=== PATIENT | male | born 1995 | race African-American/Black ===

== ENCOUNTER 2017-03-22 17:35 | Inpatient (IN) | payer BC, OTHER ==
[~2017-03-22] VITALS: Ht 185.4 cm; Wt 72.0 kg
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
[2017-03-22] MEDS ORDERED: LORAZEPAM 2 MG/ML 1 ML VIAL IM STA (19:42)
[2017-03-22] MEDS ORDERED: HALOPERIDOL LACTATE 5 MG/ML 1 ML VIAL IM STA (19:42)
[2017-03-22 20:16] LABS: BASO % 0.4 %; BASO ABS # 0.03 K/uL (0-0.2); EOS % 2.8 %; EOS ABS # 0.21 K/uL (0-0.5); HEMATOCRIT 45.9 % (42-52); HEMOGLOBIN 16.1 g/dL (14.0-18.0); LYMPH ABS # 2.95 K/uL (1.2-3.4); MEAN CORPUSCULAR HEMOGLOBIN 31.2 pg (25-34); MEAN CORPUSCULAR HGB CONC 35.1 g/dl (32-36); MEAN PLATELET VOLUME 10.4 fL (7.4-10.4); MONO % 9.2 %; MONO ABS # 0.68 K/uL (0.11-0.59); NEUT % 47.6 %; NEUT ABS # 3.51 K/uL (1.4-6.5); PLATELET COUNT 210 K/uL (130-400); RED CELL DISTRIBUTION WIDTH CV 12.2 % (11.5-14.5); RED CELL DISTRIBUTION WIDTH SD 38.7 fL (36.4-46.3); WHITE BLOOD COUNT 7.38 K/uL (4.8-10.8)
[2017-03-22 20:32] LABS: ALBUMIN 4.7 gm/dl (3.4-5.0); ALT/SGPT 20 U/L (12-78); BLOOD UREA NITROGEN 12 mg/dl (7-18); CALCIUM 9.5 mg/dl (8.5-10.1); CARBON DIOXIDE 23 mmol/L (21-32); CREATININE 1.23 mg/dl (0.60-1.40); GLUCOSE 94 mg/dl (70-99); POTASSIUM 3.3 mmol/L (3.5-5.1); SODIUM 138 mmol/L (136-145)
[2017-03-22 20:43] LABS: ALKALINE PHOSPHATASE 71 U/L (45-117); AST/SGOT 24 U/L (15-37); TOTAL PROTEIN 8.7 gm/dl (6.4-8.2)
[2017-03-22] MEDS ORDERED: NURSING VERBAL MED ORDER ONE ×2 (23:00→23:30)
[2017-03-22] MEDS ORDERED: LORAZEPAM 1 MG TAB PO PRN (23:00)
[2017-03-22 23:07] VITALS: O2SAT 99
[2017-03-22] MEDS ORDERED: HALOPERIDOL 5 MG TAB ONE (23:21)
[2017-03-22] MEDS ORDERED: MAGNESIUM HYDROXIDE SUSP 30 ML UDC PO PRN (23:30)
[2017-03-22] MEDS ORDERED: ACETAMINOPHEN 325 MG TAB PO PRN (23:30)
[2017-03-22] MEDS ORDERED: ALUMINUM/MAGNESIUM SUSP 30 ML UDC PO PRN (23:30)
[2017-03-22] MEDS ORDERED: BISMUTH SUBSALICYLATE PER ML OMNICELL CHARGE PO PRN (23:30)
[2017-03-22] MEDS ORDERED: SODIUM CHLORIDE 0.65% NA SOLN 45 ML (OCEAN) PRN (23:30)
[2017-03-22] MEDS ORDERED: hydrOXYzine HCL 25 MG TAB PO PRN ×2 (23:30)
[2017-03-22] MEDS ORDERED: HALOPERIDOL 5 MG TAB PO PRN (23:30)
[2017-03-23 01:00] VITALS: BP 141/72; PULSE 85; TEMP 37.1; Ht 185.4 cm; Wt 72.0 kg
[2017-03-23 06:54] VITALS: BP 107/65; PULSE 58; TEMP 37
[2017-03-23] MEDS ORDERED: RISPERIDONE ODT 0.5MG PO ONE (11:48)
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
[2017-03-23] MEDS ORDERED: BENZTROPINE MESYLATE 1 MG TAB PO PRN (12:00)
[2017-03-23] MEDS ORDERED: RISPERIDONE ODT 0.5MG PO PRN (12:00)
[2017-03-23 13:42] VITALS: BP 101/60; PULSE 80; TEMP 36.5
[2017-03-23] MEDS: RISPERIDONE ODT 0.5MG PO SCH (21:58)
[2017-03-24 06:53] VITALS: BP_SYST 104; BP_SYST 110; BP_DIAS 67; BP_DIAS 68; PULSE 60; PULSE 77; TEMP 36.8
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
[2017-03-24] MEDS: RISPERIDONE ODT 0.5MG PO SCH ×2 (09:00→22:00)
--- NOTE | 2017-03-24 15:41 | Psych Management Progress Note ---
Psychiatry Miscellaneous Date of Service: Mar 24, 2017. met with patient as covering for Dr. Keen later in the week and a second opinion may be needed re: forced psych meds if ultimately on 303. Patient tries to shut down repetitive questioning so less forthcoming with delusions. Says that he shaved for rastafarian purposes (caodaism) and that he doesn't want to talk about delgado. He seemed to imply he was seeing things. He didn't want to talk about telepathy as "just wants to earn credit" to get out of here. Unwilling to discuss medication and aftercare.
[2017-03-25 06:53] VITALS: BP_SYST 114; BP_SYST 117; BP_DIAS 68; BP_DIAS 73; PULSE 101; PULSE 58; TEMP 36.4
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
[2017-03-25] MEDS: RISPERIDONE ODT 0.5MG PO SCH ×2 (09:00→21:13)
[2017-03-26 06:51] VITALS: BP_SYST 121; BP_SYST 128; BP_DIAS 72; BP_DIAS 79; PULSE 54; PULSE 68; TEMP 36.6
[2017-03-26] MEDS: RISPERIDONE ODT 0.5MG PO SCH ×2 (09:00→21:21)
--- NOTE | 2017-03-26 10:05 | Psych Management Progress Note ---
Psychiatry Miscellaneous Date of Service: Mar 26, 2017. Patient seen, MS assessed. Rates mood as 9/10. Encouraged cooperation with care and treatment plan as outlined by allied health staff. He had a family meeting yesterday where he agreed to return home to [place] area with a parent and give up his car.
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
[2017-03-27 06:45] VITALS: BP_SYST 113; BP_SYST 116; BP_DIAS 68; BP_DIAS 69; PULSE 72; PULSE 89; TEMP 36.6
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
[2017-03-27] MEDS: RISPERIDONE ODT 0.5MG PO SCH (08:58)
--- NOTE | 2017-03-27 16:07 | Psych Management Progress Note ---
Psychiatry Miscellaneous Date of Service: Mar 27, 2017. I personally participated in the medical decision making around this patient's discharge. He and family are aware that our medical advice is that he remain in the hospital and begin Risperdal. He no longer meets criteria for inpatient involuntary commitment and continues to refuse extension of his stay on a voluntary basis.
== END 2017-03-27 15:14 | disposition home or self-care (01) | DRG 885 ==
LOC: C.EDB 17:37 → C.MHU 22:55 → ENRESERV 23:04
PROVIDERS: ADMIT Psychiatry & Neurology Psychiatry; ATTEND Psychiatry & Neurology Psychiatry
DX: F29 Unspecified psychosis not due to a substance or known physiological condition (principal); F12.10 Cannabis abuse, uncomplicated; Z81.8 Family history of other mental and behavioral disorders